=== PATIENT | male | born 1995 | race African-American/Black ===

== ENCOUNTER 2017-05-22 09:17 | Emergency (ER) | payer OTHER, SELFPAY ==
[~2017-05-22] VITALS: Ht 172.7 cm; Wt 88.1 kg
[2017-05-22 09:17] VITALS: BP 131/89
[~2017-05-22 09:17] MED LIST: No Historical Meds
[2017-05-22] MEDS ORDERED: KEFL500C17 PO (09:42)
== END 2017-05-22 09:53 | disposition home or self-care (01) ==
LOC: M ED 09:17
DX: J32.1 Chronic frontal sinusitis (principal)

== ENCOUNTER 2017-12-01 10:37 | Emergency (ER) | payer SELFPAY ==
[2017-12-01] MEDS: ONDANSETRON 4MG/2ML VIAL (J2405) IV (10:49)
[2017-12-01] MEDS: NS 1,000 ML IV (10:50)
[2017-12-01 11:00] LABS: BASO % 0.6 % (0.0-1.0); EOS # 0.1 10^3/uL (0.0-0.50); EOS % 2.3 % (0.0-3.0); IMMATURE GRANULOCYTE % 0.2 % (0-3.0); MEAN CORPUSCULAR HGB CONC 33.3 g/dl (32.0-36.5); MONO # 0.5 10^3/uL (0.0-0.8); MONO % 9.2 % (0.0-5.0); NEUTROPHILS # 2.6 10^3/uL (1.8-7.7); NEUTROPHILS % 49.7 % (36.0-66.0); PLATELET COUNT, AUTOMATED 233 10^3/uL (150-450); RED BLOOD COUNT 5.36 10^6/uL (4.30-6.10); RED CELL DISTRIBUTION WIDTH 13.5 % (11.5-14.5); WHITE BLOOD COUNT 5.2 10^3/uL (4.0-10.0)
[2017-12-01 11:24] LABS: ALBUMIN/GLOBULIN RATIO 1.29 (1.00-1.93); ALKALINE PHOSPHATASE 84 U/L (45-117); ALT/SGPT 23 U/L (12-78); AMYLASE 60 U/L (25-115); ANION GAP 7 MEQ/L (8-16); AST/SGOT 14 U/L (7-37); BILIRUBIN,DIRECT < 0.1 MG/DL (0.0-0.2); BILIRUBIN,TOTAL 0.2 MG/DL (0.2-1.0); BLOOD UREA NITROGEN 14 MG/DL (7-18); CALCIUM LEVEL 8.6 MG/DL (8.5-10.1); CARBON DIOXIDE LEVEL 30 MEQ/L (21-32); CHLORIDE LEVEL 107 MEQ/L (98-107); CREATININE FOR GFR 0.94 MG/DL (0.70-1.30); GLOMERULAR FILTRATION RATE > 60.0 (>60); GLUCOSE, FASTING 102 MG/DL (70-100); LIPASE 154 U/L (73-393); POTASSIUM SERUM 4.4 MEQ/L (3.5-5.1); SODIUM LEVEL 144 MEQ/L (136-145); TOTAL PROTEIN 7.1 GM/DL (6.4-8.2)
== END 2017-12-01 12:00 | disposition home or self-care (01) ==
LOC: M ED 10:37
DX: R11.2 Nausea with vomiting, unspecified (principal); R19.7 Diarrhea, unspecified
CPT/HCPCS: J2405

== ENCOUNTER 2018-03-02 09:09 | Emergency (ER) | payer SELFPAY | END 2018-03-02 11:48 | disposition home or self-care (01) | LOC: M ED 09:09 | DX: R05 Cough (principal); Z72.0 Tobacco use | CPT/HCPCS: 71046 ==

== ENCOUNTER 2018-06-06 11:27 | Emergency (ER) | payer MEDICAID, SELFPAY ==
[~2018-06-06] VITALS: Ht 172.7 cm; Wt 89.2 kg
[~2018-06-06 11:27] MED LIST changes: +KEFL500C17 PO; +ZOFR4TAB14 PO
[2018-06-06 12:46] LABS: INFLUENZA A AMPLIFICATION NEGATIVE (NEGATIVE); INFLUENZA B AMPLIFICATION NEGATIVE (NEGATIVE)
[2018-06-06] MEDS ORDERED: BENZ200C70 PO (12:59)
[2018-06-06] MEDS ORDERED: IBUP-1022 PO (12:59)
[2018-06-06] MEDS ORDERED: AFRI0.0511 (12:59)
[2018-06-06 13:05] VITALS: BP 152/70
== END 2018-06-06 13:06 | disposition home or self-care (01) ==
LOC: M ED 11:27
DX: J06.9 Acute upper respiratory infection, unspecified (principal); Z72.0 Tobacco use

== ENCOUNTER 2019-07-30 19:19 | Emergency (ER) | payer MEDICAID ==
[~2019-07-30] VITALS: Ht 172.7 cm; Wt 93.2 kg
[~2019-07-30 19:19] MED LIST changes: +AFRI0.0511; +BENZ200C70 PO; +IBUP-1022 PO
[2019-07-30] MEDS ORDERED: ACETAMINOPHEN 500 MG TAB PO ONE (20:15)
[2019-07-30] MEDS ORDERED: ARTICAINE HCL/EPINEPHRINE 4%-1:200,000 1.7ML INJ (SEPTOCAINE) SM ONE (20:15)
[2019-07-30] MEDS ORDERED: IBUP80TA PO (20:28)
[2019-07-30] MEDS ORDERED: MAGICMW SSP (20:28)
[2019-07-30] MEDS ORDERED: ACET-683 PO (20:28)
[2019-07-30 20:40] VITALS: BP 122/65
[2019-07-31] MEDS ORDERED: ACET-683 PO (14:24)
[2019-07-31] MEDS ORDERED: IBUP80TA PO (14:24)
[2019-07-31] MEDS ORDERED: NORC1TAB7 PO (14:24)
[2019-07-31] MEDS ORDERED: MAGICMW SSP (14:24)
[2019-07-31] MEDS ORDERED: AUGM875T28 PO (14:24)
== END 2019-07-30 20:43 | disposition home or self-care (01) ==
LOC: M ED 19:19
DX: S02.5XXA Fracture of tooth (traumatic), initial encounter for closed fracture (principal); K08.89 Other specified disorders of teeth and supporting structures; X58.XXXA Exposure to other specified factors, initial encounter; Y92.9 Unspecified place or not applicable; Y93.9 Activity, unspecified; Y99.9 Unspecified external cause status; F17.200 Nicotine dependence, unspecified, uncomplicated

== ENCOUNTER 2019-07-31 13:26 | Emergency (ER) | payer MEDICAID ==
[~2019-07-31] VITALS: Ht 172.7 cm; Wt 90.9 kg
[~2019-07-31 13:26] MED LIST changes: +ACET-683 PO; +IBUP80TA PO; +MAGICMW SSP
[2019-07-31] MEDS ORDERED: AUGMENTIN 875 MG TAB PO ONE (14:15)
[2019-07-31] MEDS ORDERED: NORCO, ANEXSIA 5/325MG TABLET (HYDROcodone/ACETAMINOPHEN) PO ONE (14:15)
[2019-07-31] MEDS ORDERED: MAGICMW SSP (14:24)
[2019-07-31] MEDS ORDERED: ACET-683 PO (14:24)
[2019-07-31] MEDS ORDERED: NORC1TAB7 PO (14:24)
[2019-07-31] MEDS ORDERED: AUGM875T28 PO (14:24)
[2019-07-31] MEDS ORDERED: IBUP80TA PO (14:24)
[2019-07-31 14:58] VITALS: BP 161/85
== END 2019-07-31 14:59 | disposition home or self-care (01) ==
LOC: M ED 13:26
DX: K04.7 Periapical abscess without sinus (principal); S02.5XXA Fracture of tooth (traumatic), initial encounter for closed fracture; X58.XXXA Exposure to other specified factors, initial encounter; Y92.9 Unspecified place or not applicable; Y93.9 Activity, unspecified; Y99.9 Unspecified external cause status; F17.200 Nicotine dependence, unspecified, uncomplicated

== ENCOUNTER 2019-11-07 20:57 | Emergency (ER) | payer MEDICAID, OTHER ==
[~2019-11-07] VITALS: Ht 172.7 cm; Wt 88.0 kg
[~2019-11-07 20:57] MED LIST changes: +AUGM875T28 PO; +NORC1TAB7 PO
[2019-11-07] MEDS ORDERED: IBUPROFEN 600MG TAB PO ONE (22:15)
[2019-11-07 22:20] VITALS: BP 141/94
--- NOTE | 2019-11-08 08:49 | REP ---
Clinical: Trauma. Pain. Technique: AP, lateral, bilateral oblique views of the right hand. Comparison: 02/05/2016. Findings: Old fractures involving the fourth and fifth metacarpal bones and suspected old fracture of the ulnar styloid are again identified. No obvious acute fracture or dislocation appreciated. No subcutaneous emphysema or foreign body. Impression: Old healed fractures of the fourth and fifth metacarpal bones and ulnar styloid. No acute fracture or dislocation appreciated. Electronically Signed by Jaylan Cope MD 11/08/2019 08:41 A
== END 2019-11-07 22:22 | disposition home or self-care (01) ==
LOC: M ED 20:57
DX: S60.221A Contusion of right hand, initial encounter (principal); W22.8XXA Striking against or struck by other objects, initial encounter; Y92.89 Other specified places as the place of occurrence of the external cause; Y99.8 Other external cause status; Z87.81 Personal history of (healed) traumatic fracture; Y93.89 Activity, other specified

== ENCOUNTER → 2021-10-24 | Outpatient (REF) | payer OTHER | LOC: M LAB REF 16:16 | PROVIDERS: ATTEND Physician Assistant Medical | DX: R11.2 Nausea with vomiting, unspecified (principal); R53.83 Other fatigue ==

== ENCOUNTER 2022-10-20 21:19 | Emergency (ER) | payer MEDICAID, SELFPAY ==
[~2022-10-20] VITALS: Ht 172.7 cm; Wt 81.9 kg
[2022-10-20 21:21] VITALS: BP 142/91
[2022-10-20] MEDS ORDERED: IBUP-1022 PO (22:18)
[2022-10-20] MEDS ORDERED: AMOX500C PO (22:18)
[2022-10-20] MEDS ORDERED: IBUPROFEN 600MG TAB PO ONE (22:20)
[2022-10-20] MEDS ORDERED: AMOXICILLIN 500 MG CAP PO ONE (22:20)
== END 2022-10-20 22:26 | disposition home or self-care (01) ==
LOC: M ED 21:19
DX: K03.81 Cracked tooth (principal)

== ENCOUNTER 2023-04-24 05:49 | Emergency (ER) | payer OTHER, SELFPAY ==
[~2023-04-24 05:49] MED LIST changes: +AMOX500C PO
[2023-04-24 07:05] VITALS: O2SAT 100
[2023-04-24] MEDS ORDERED: VENTAER INH (07:09)
[2023-04-24 07:26] VITALS: BP 117/77; TEMP 98.5; O2SAT 100
== END 2023-04-24 07:30 | disposition home or self-care (01) ==
LOC: M ED 05:49 → EDBD 05:49 → M ED 07:30
DX: U07.1 COVID-19 (principal); F17.210 Nicotine dependence, cigarettes, uncomplicated; Z79.1 Long term (current) use of non-steroidal anti-inflammatories (NSAID); Z79.2 Long term (current) use of antibiotics

== ENCOUNTER 2023-05-08 21:36 | Emergency (ER) | payer OTHER, SELFPAY ==
[~2023-05-08] VITALS: Ht 172.7 cm; Wt 79.0 kg
[~2023-05-08 21:36] MED LIST changes: +VENTAER INH
[2023-05-08 23:37] VITALS: BP 123/62; TEMP 99.2; O2SAT 100
[2023-05-09] MEDS ORDERED: BOOSTRIX VACCINE (TETANUS/DIPHTH/ACEL. PERTUSSIS) 0.5ML SYR IM ONE (02:00)
[2023-05-09] MEDS ORDERED: AUGMENTIN 875 MG TAB PO ONE (02:00)
[2023-05-09] MEDS ORDERED: AUGM500T34 PO (02:01)
== END 2023-05-09 02:23 | disposition home or self-care (01) ==
LOC: M ED 21:36
DX: S00.471A Other superficial bite of right ear, initial encounter (principal); W54.0XXA Bitten by dog, initial encounter; Y92.098 Other place in other non-institutional residence as the place of occurrence of the external cause; Y93.K9 Activity, other involving animal care; Y99.8 Other external cause status; Z23 Encounter for immunization